=== PATIENT | male | born 1955 | race Caucasian/White ===

== ENCOUNTER 2021-10-02 16:39 | Emergency (ER) | payer BC ==
[2021-10-02] MEDS ORDERED: Ketorolac 30 MG/ML SDV IM ONE (17:14)
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
== END 2021-10-02 18:39 | disposition home or self-care (01) ==
LOC: JP.ED 16:39
DX: S40.011A Contusion of right shoulder, initial encounter (principal); V86.52XA Driver of snowmobile injured in nontraffic accident, initial encounter
CPT/HCPCS: 73030; 96372; 99283; J1885